=== PATIENT | male | born 1980 | race Caucasian/White ===

== ENCOUNTER 2016-11-04 16:20 | Emergency (ER) | payer SELFPAY ==
[~2016-11-04] VITALS: Ht 188 cm; Wt 200.0 kg
[~2016-11-04 16:20] MED LIST: ALLO300 PO; IBUP800T23 PO; INDO25CA PO; ROBA750T3 PO
[2016-11-04 16:22] VITALS: BP 189/99; PULSE 97; RESP 15; TEMP 98.6; O2SAT 97
--- NOTE | 2016-11-04 16:40 | PD ---
HPI Chief Complaint: Injury Time Seen by Provider: 16:31 Travel History International Travel<30 days: No Contact w/Intl Traveler<30days: No Traveled to known affect area: No History of Present Illness HPI 36-year-old male recently diagnosed with type 2 diabetes 3 weeks ago, presents the emergency department with history of the right great toe nail avulsion 5 days prior to this visit. Patient states he was wearing flip-flops and slipped getting into his truck and his complete toenail came off on Monday. In the last 2 days he's had increased localized pain, swelling, and erythema with streaks up the anterior right navarro today. Patient states his sugars have been normal running 117 this morning. Patient was recently diagnosed with type 2 diabetes 3 weeks ago and started on metformin. Patient was also recently treated for "generalized boils" with 2 weeks of oral antibiotics which she finished approximately a week ago. Patient denies fever, chills, or other symptoms. His pain is 3 out of 10. He is able to ambulate. There is no deformity. He has no known drug allergies. PFSH Past Medical History Cerebrovascular Accident: No Diabetes: Yes Social History Alcohol Use: No Tobacco Use: No Allergies-Medications (Allergen,Severity, Reaction): Coded Allergies: No Known Allergies (Unverified , 12/09/14) Reported Meds & Prescriptions Reported Meds & Active Scripts Active Ibuprofen 800 Mg Tab 800 Mg PO Q6H PRN Robaxin-750 (Methocarbamol) 750 Mg Tab 750 Mg PO QID Reported Indocin (Indomethacin) 25 Mg Cap 25 Mg PO ONCE PRN Zyloprim (Allopurinol) 300 Mg Tab 150 Mg PO DAILY Review of Systems Except as stated in HPI: all other systems reviewed are Neg General / Constitutional: No: Fever Eyes: No: Visual changes HENT: No: Headaches Cardiovascular: No: Chest Pain or Discomfort Respiratory: No: Shortness of Breath Gastrointestinal: No: Abdominal Pain Genitourinary: No: Dysuria Musculoskeletal: No: Pain Skin: No Rash Neurologic: No: Weakness Psychiatric: No: Depression Endocrine: No: Polydipsia Hematologic/Lymphatic: No: Easy Bruising Physical Exam Narrative GENERAL: Moderately obese male in no acute distress. SKIN: Warm and dry. Normal color. Normal turgor. Patient has obvious complete avulsed nail of the right great toe, with the nail bed appearing somewhat erythematous with localized erythema and warmth to the proximal toe with streaking measuring up past the ankle on the anterior right navarro. It goes approximately one third [address] way up right navarro. There is no sign of abscess or drainage. There is localized swelling to the dorsal foot on the side as well. No obvious signs of abscess. HEAD: Atraumatic. Normocephalic. EYES: Pupils equal and round. No scleral icterus. No injection or drainage. ENT: No nasal bleeding or discharge. Mucous membranes pink and moist. Pharynx is clear. Airway is patent. NECK: Trachea midline. Supple nontender. CARDIOVASCULAR: Regular rate and rhythm. RESPIRATORY: No accessory muscle use. Clear to auscultation. Breath sounds equal bilaterally. MUSCULOSKELETAL: Extremities without clubbing, cyanosis, or edema. No obvious deformities. No bony tenderness or decreased range of motion on the right foot or toes. NEUROLOGICAL: Awake and alert. No obvious cranial nerve deficits. Motor grossly within normal limits. Five out of 5 muscle strength in the arms and legs. Normal speech. PSYCHIATRIC: Appropriate mood and affect; insight and judgment normal. Data Data Last Documented VS Vital Signs Date Time Temp Pulse Resp B/P Pulse Ox O2 Delivery O2 Flow Rate FiO2 11/04/16 16:22 98.6 97 15 189/99 97 MDM Medical Decision Making Medical Screen Exam Complete: Yes Emergency Medical Condition: Yes Differential Diagnosis Right great nail avulsion. Cellulitis. Type 2 diabetes. Narrative Course Patient is medically stable at time of exam. Patient's foot was soaked in 10% Betadine saline solution for 10 minutes. Xeroform gauze and Chanelle dressing was placed. Patient was given his first dose of Bactrim DS as well as Keflex 500 mg by mouth. Patient will be continued on Bactrim DS twice a day as well as Keflex 500 mg 3 times a day for the next 7 days. Patient should keep the area clean and covered and perform dressing changes once daily as discussed. Patient should follow with his primary care physician on Monday or return to emergency Department with any worsening symptoms as discussed. Diagnosis Primary Impression: Nail avulsion, toe Qualified Code: S91.209A - Avulsion of toenail, initial encounter Additional Impressions: Cellulitis of toe of left foot Type 2 diabetes mellitus Qualified Code: E11.9 - Type 2 diabetes mellitus without complication, without long-term current use of insulin Referrals: Primary Care Physician Patient Instructions: Cellulitis (DC), General Instructions, Nail Avulsion (ED) Additional Instructions: Patient is medically stable at time of exam. Patient's foot was soaked in 10% Betadine saline solution for 10 minutes. Xeroform gauze and Chanelle dressing was placed. Patient was given his first dose of Bactrim DS as well as Keflex 500 mg by mouth. Patient will be continued on Bactrim DS twice a day as well as Keflex 500 mg 3 times a day for the next 7 days. Patient should keep the area clean and covered and perform dressing changes once daily as discussed. Patient should follow with his primary care physician on Monday or return to emergency Department with any worsening symptoms as discussed. Med/Other Pt SpecificInfo: Prescription(s) given Disposition: DISCHARGE HOME Condition: Stable Kahlil Ortega Nov 04, 2016 16:40
[2016-11-04] MEDS ORDERED: SULFAMETHOXAZOLE-TRIMETHOPRIM DS 800-160 MG TAB PO ONE (16:45)
[2016-11-04] MEDS ORDERED: CEPHALEXIN MONOHYDRATE 500 MG CAP PO ONE (16:45)
[2016-11-04] MEDS ORDERED: CEPH500C PO (16:52)
[2016-11-04] MEDS ORDERED: BACT800T5 PO (16:52)
== END 2016-11-04 17:13 | disposition home or self-care (01) ==
LOC: NEPK 16:20
DX: S91.209A Unspecified open wound of unspecified toe(s) with damage to nail, initial encounter (principal); W01.0XXA Fall on same level from slipping, tripping and stumbling without subsequent striking against object, initial encounter; L03.032 Cellulitis of left toe; E11.9 Type 2 diabetes mellitus without complications
CPT/HCPCS: 99284